=== PATIENT | female | born 1995 | race Two or more races ===

== ENCOUNTER 2020-11-27 23:57 | Emergency (ER) | payer BC, OTHER ==
[~2020-11-27] VITALS: Ht 157.5 cm; Wt 56.7 kg
[2020-11-28 01:42] LABS: Basophils # (auto) 0 10 ^3/uL (0-0.2); Basophils % (auto) 0.4 % (0.0-2.0); Eosinophils # (auto) 0.3 10 ^3/uL (0-0.8); Eosinophils % (auto) 2.4 % (0.0-7.0); Hematocrit 34.2 % (36.0-46.0); Lymphocytes # (auto) 3.5 10 ^3/uL (0.4-5.4); Lymphocytes % (auto) 31.7 % (10.0-50.0); Mean Corpuscular Hemoglobin 32.1 pg (28.0-32.0); Mean Corpuscular Volume 91.8 fL (80.0-100.0); Monocytes # (auto) 0.7 10 ^3/uL (0-1.3); Monocytes % (auto) 6.2 % (0.0-12.0); Neutrophils # (auto) 6.5 10 ^3/uL (1.6-8.6); Neutrophils % (auto) 59.3 % (37.0-80.0); Nucleated Red Blood Cells % 0.1 %; Platelet Count (auto) 327 10^3/uL (140-450); Red Blood Cells 3.73 10^6/uL (4.0-5.20); Red Cell Distribution Width 12.8 % (11.8-14.3)
[2020-11-28 02:01] LABS: Albumin 3.7 g/dL (3.4-5.0); BUN/Creatinine Ratio 11.5; Calcium 8.8 mg/dL (8.5-10.1); Potassium 3.2 mmol/L (3.5-5.1)
[2020-11-28 02:03] LABS: Bilirubin, Total 0.2 mg/dL (0.2-1.0); Total Protein 6.9 g/dL (6.4-8.2)
[2020-11-28] MEDS ORDERED: SODIUM CHLORIDE 0.9% 1,000 ML IV ONE (02:30)
[2020-11-28 04:00] VITALS: BP 122/71
== END 2020-11-28 05:07 | disposition home or self-care (01) ==
LOC: ER 23:57
DX: O20.0 Threatened abortion (principal); Z3A.01 Less than 8 weeks gestation of pregnancy
CPT/HCPCS: 36415; 76801; 76817; 80053; 84702; 85025; 86850; 86900; 86901; 96360; 96361

== ENCOUNTER 2021-08-21 14:30 | Emergency (ER) | payer BC, MEDICAID ==
[~2021-08-21] VITALS: Ht 157.5 cm; Wt 59.0 kg
[2021-08-21 21:05] VITALS: BP 108/68
== END 2021-08-21 21:29 | disposition home or self-care (01) ==
LOC: ER 14:30
DX: O26.891 Other specified pregnancy related conditions, first trimester (principal); R10.30 Lower abdominal pain, unspecified; Z3A.01 Less than 8 weeks gestation of pregnancy; V49.49XA Driver injured in collision with other motor vehicles in traffic accident, initial encounter; Y93.89 Activity, other specified; Y92.488 Other paved roadways as the place of occurrence of the external cause; Y99.8 Other external cause status
CPT/HCPCS: 76801; 76817

== ENCOUNTER 2021-09-07 11:09 | Emergency (ER) | payer MEDICAID ==
[~2021-09-07] VITALS: Ht 157.5 cm; Wt 59.0 kg
[2021-09-07 11:51] LABS: Basophils # (auto) 0 10 ^3/uL (0-0.2); Basophils % (auto) 0.5 % (0.0-2.0); Eosinophils # (auto) 0.2 10 ^3/uL (0-0.8); Eosinophils % (auto) 2.9 % (0.0-7.0); Hematocrit 38.9 % (36.0-46.0); Hemoglobin 13.2 g/dL (12.2-16.2); Lymphocytes # (auto) 2.6 10 ^3/uL (0.4-5.4); Lymphocytes % (auto) 32.2 % (10.0-50.0); Mean Corpuscular Hemoglobin 31.4 pg (28.0-32.0); Mean Corpuscular Hgb Conc. 33.9 g/dL (32.0-36.0); Mean Corpuscular Volume 92.7 fL (80.0-100.0); Monocytes # (auto) 0.4 10 ^3/uL (0-1.3); Monocytes % (auto) 4.3 % (0.0-12.0); Neutrophils # (auto) 4.9 10 ^3/uL (1.6-8.6); Neutrophils % (auto) 60.1 % (37.0-80.0); Red Cell Distribution Width 12.6 % (11.8-14.3); White Blood Cell 8.1 10^3/uL (4.4-10.8)
[2021-09-07 14:55] LABS: Urine Bacteria FEW /hpf (None Seen); Urine Blood 3+ /uL (Negative); Urine Specific Gravity 1.003 (1.001-1.035); Urine WBC 1 /hpf (0 - 5)
[2021-09-07 15:50] VITALS: BP 122/79
== END 2021-09-07 16:01 | disposition home or self-care (01) ==
LOC: ER 11:09
DX: O20.8 Other hemorrhage in early pregnancy (principal); R10.9 Unspecified abdominal pain; Z3A.01 Less than 8 weeks gestation of pregnancy
CPT/HCPCS: 36415; 76801; 76817; 81001; 84702; 85025

== ENCOUNTER 2021-09-08 13:24 | Emergency (ER) | payer MEDICAID ==
[~2021-09-08] VITALS: Ht 157.5 cm; Wt 59.0 kg
[2021-09-08 13:36] VITALS: BP 121/73
[2021-09-08] MEDS ORDERED: MORPHINE SULFATE 4 MG/ML SYR/VIAL IV ONE (14:30)
[2021-09-08] MEDS ORDERED: ONDANSETRON HCL 4 MG/2 ML VIAL IV ONE (14:30)
== END 2021-09-08 14:29 | disposition left against medical advice (07) ==
LOC: ER 13:24
DX: O20.8 Other hemorrhage in early pregnancy (principal); R10.2 Pelvic and perineal pain; Z3A.01 Less than 8 weeks gestation of pregnancy; Z53.21 Procedure and treatment not carried out due to patient leaving prior to being seen by health care provider